=== PATIENT | female | born 1955 ===

== ENCOUNTER 2021-07-13 06:15 | Day surgery (SDC) | payer OTHER | END 2021-07-13 12:50 | disposition home or self-care (01) | LOC: AMB-ENDOS 06:15 | PROVIDERS: ATTEND Internal Medicine Gastroenterology | DX: D12.0 Benign neoplasm of cecum (principal) ==

== ENCOUNTER 2021-08-18 10:15 | Inpatient (IN) | payer OTHER ==
[~2021-08-18] VITALS: Ht 152.4 cm; Wt 68.0 kg
[2021-08-18] MEDS ORDERED: NORVASC5 MG PO (11:36)
[2021-08-18] MEDS ORDERED: LIPIT PO (11:36)
[2021-08-18] MEDS ORDERED: DIOVAN HCT 1601 EAC1 PO (11:36)
[2021-08-18] MEDS ORDERED: TOPROL XL25 M1 PO (11:37)
[2021-08-18] MEDS ORDERED: TOPROL XL50 M1 PO (11:37)
[2021-08-18] MEDS ORDERED: ATARAX25 MG PO (11:37)
[2021-08-18] MEDS ORDERED: TIZANIDINE HCL6 MG PO (11:38)
[2021-08-18] MEDS ORDERED: SYNTHROID112 MCG PO (11:38)
[2021-08-18] MEDS ORDERED: [UNRECOGNIZED DRUG - OTHER] PO (11:39)
[2021-08-23] MEDS ORDERED: OMEGA 3 FISH O1 EACH (09:29)
[2021-08-23] MEDS ORDERED: ATORVASTATIN CA10 MG (09:29)
[2021-08-23] MEDS ORDERED: VITAMIN D31250 MCG (09:29)
[2021-08-23] MEDS ORDERED: MELATONIN10 MG PO (09:30)
== END 2021-08-24 11:47 | disposition home or self-care (01) | DRG 330 ==
LOC: O/R 08-22 06:00 → SURG 08-22 06:00 → SURH 08-22 07:00 → SURG 08-22 12:01
PROVIDERS: ADMIT Colon & Rectal Surgery; ATTEND Colon & Rectal Surgery
PROC: 0DBP4ZZ Excision of Rectum, Percutaneous Endoscopic Approach (ICD-10-PCS; 2021-08-22)
PROC: 07BC4ZX Excision of Pelvis Lymphatic, Percutaneous Endoscopic Approach, Diagnostic (ICD-10-PCS; 2021-08-22)
PROC: 3E0F7SF Introduction of Other Gas into Respiratory Tract, Via Natural or Artificial Opening (ICD-10-PCS; 2021-08-22)
PROC: 0DBN4ZZ Excision of Sigmoid Colon, Percutaneous Endoscopic Approach (ICD-10-PCS; principal; 2021-08-22 07:00)
DX: D12.0 Benign neoplasm of cecum (principal); C18.0 Malignant neoplasm of cecum; I10 Essential (primary) hypertension; E03.8 Other specified hypothyroidism